=== PATIENT | male | born 1985 | race Caucasian/White ===

== ENCOUNTER 2018-05-24 18:13 | Emergency (ER) | payer OTHER ==
[~2018-05-24] VITALS: Ht 172.7 cm; Wt 100.0 kg
[2018-05-24 20:25] VITALS: BP 120/70
== END 2018-05-24 20:26 | disposition home or self-care (01) ==
LOC: EMS 18:16
DX: T24.101A Burn of first degree of unspecified site of right lower limb, except ankle and foot, initial encounter (principal); T24.102A Burn of first degree of unspecified site of left lower limb, except ankle and foot, initial encounter; F17.210 Nicotine dependence, cigarettes, uncomplicated; X58.XXXA Exposure to other specified factors, initial encounter; Y93.89 Activity, other specified; Y92.89 Other specified places as the place of occurrence of the external cause; Y99.8 Other external cause status
CPT/HCPCS: 16000; 99283; 99406

== ENCOUNTER 2019-04-13 11:53 | Emergency (ER) | payer OTHER ==
[~2019-04-13] VITALS: Ht 172.7 cm; Wt 86.4 kg
[2019-04-13] MEDS ORDERED: TETRACAINE HCL VISCOUS 0.5% 0.6 ML OPHTHALMIC SOLUTION OU ONE (13:00)
[2019-04-13] MEDS ORDERED: FLUORESCEIN SODIUM 1 MG STRIP ONE (13:00)
[2019-04-13] MEDS ORDERED: FLUORESCEIN SODIUM 1 MG STRIP OD ONE (13:00)
[2019-04-13] MEDS ORDERED: TETRACAINE HCL/PF 0.5% 4 ML OPHTHALMIC SOLUTION OU ONE (13:15)
[2019-04-13] MEDS ORDERED: PERTUSS(ACELL),DIPH,TET VAC/PF 0.5 ML VIAL IM ONE (13:45)
[2019-04-13 14:24] VITALS: BP 121/72
== END 2019-04-13 14:26 | disposition home or self-care (01) ==
LOC: EMS 11:53
DX: T15.01XA Foreign body in cornea, right eye, initial encounter (principal); F17.210 Nicotine dependence, cigarettes, uncomplicated; W22.8XXA Striking against or struck by other objects, initial encounter; Y93.89 Activity, other specified; Y92.89 Other specified places as the place of occurrence of the external cause; Y99.8 Other external cause status
CPT/HCPCS: 65222; 90471; 90715

== ENCOUNTER 2019-04-18 08:06 | Emergency (ER) | payer OTHER ==
[~2019-04-18] VITALS: Ht 177.8 cm; Wt 72.7 kg
[2019-04-18 08:42] LABS: AMPHET/METH SCREEN,URINE NEGATIVE (NEGATIVE); BARBITURATE SCREEN, URINE NEGATIVE (NEGATIVE); BENZODIAZEPINES SCREEN,URINE NEGATIVE (NEGATIVE); CANNABINOID SCREEN,URINE NEGATIVE (NEGATIVE); COCAINE SCREEN,URINE POSITIVE (NEGATIVE); METHADONE SCREEN, URINE NEGATIVE (NEGATIVE); OPIATE SCREEN,URINE NEGATIVE (NEGATIVE); PHENCYCLIDINE SCREEN,URINE NEGATIVE (NEGATIVE)
[2019-04-18 09:42] VITALS: BP 157/94
== END 2019-04-18 11:01 | disposition home or self-care (01) ==
LOC: EMS 08:07
DX: F14.10 Cocaine abuse, uncomplicated (principal); R00.2 Palpitations; F43.9 Reaction to severe stress, unspecified; F41.9 Anxiety disorder, unspecified; F17.210 Nicotine dependence, cigarettes, uncomplicated; Z79.899 Other long term (current) drug therapy
CPT/HCPCS: 99406

== ENCOUNTER 2019-09-15 09:09 | Emergency (ER) | payer SELFPAY ==
[~2019-09-15] VITALS: Ht 165.1 cm; Wt 90.0 kg
[2019-09-15] MEDS ORDERED: HYDROCODONE/ACETAMINOPHEN 5-325 MG TABLET PO ONE (10:15)
[2019-09-15 10:29] VITALS: BP 140/90
== END 2019-09-15 10:42 | disposition home or self-care (01) ==
LOC: EMS 09:10
DX: S05.02XA Injury of conjunctiva and corneal abrasion without foreign body, left eye, initial encounter (principal); F17.210 Nicotine dependence, cigarettes, uncomplicated; Z98.890 Other specified postprocedural states; X58.XXXA Exposure to other specified factors, initial encounter; Y93.89 Activity, other specified; Y92.89 Other specified places as the place of occurrence of the external cause; Y99.8 Other external cause status

== ENCOUNTER 2022-05-09 12:44 | Emergency (ER) | payer MEDICAID | END 2022-05-09 14:55 | disposition left against medical advice (07) | LOC: EMS 12:44 | DX: U07.1 COVID-19 (principal); Z53.21 Procedure and treatment not carried out due to patient leaving prior to being seen by health care provider ==

== ENCOUNTER 2024-04-12 20:06 | Emergency (ER) | payer BC, MEDICAID ==
[~2024-04-12] VITALS: Ht 172.7 cm; Wt 100.0 kg
[2024-04-12 20:10] VITALS: BP 122/72; PULSE 83; RESP 16; TEMP 99.6
[2024-04-12 20:18] LABS: COVID AG,FIA SOURCE NASAL SWAB
[2024-04-12 20:39] LABS: SARS-COV2 (COVID) ANTIGEN,FIA Negative (Negative)
[2024-04-12 20:46] LABS: INFLUENZA TYPE A NEGATIVE FOR TYPE A (NEGATIVE); INFLUENZA TYPE B NEGATIVE FOR TYPE B (NEGATIVE)
== END 2024-04-13 01:53 | disposition left against medical advice (07) ==
LOC: EMS 20:11
DX: R51.9 Headache, unspecified (principal); M79.10 Myalgia, unspecified site; R09.81 Nasal congestion; Z53.21 Procedure and treatment not carried out due to patient leaving prior to being seen by health care provider; Z20.822 Contact with and (suspected) exposure to COVID-19
CPT/HCPCS: 87804

== ENCOUNTER 2024-04-13 10:24 | Emergency (ER) | payer BC, MEDICAID ==
[~2024-04-13] VITALS: Ht 172.7 cm; Wt 100.0 kg
[2024-04-13 10:51] VITALS: TEMP 98.1
[2024-04-13 12:32] LABS: COVID AG,FIA SOURCE NASAL SWAB
[2024-04-13 13:01] LABS: INFLUENZA TYPE A NEGATIVE FOR TYPE A (NEGATIVE); INFLUENZA TYPE B NEGATIVE FOR TYPE B (NEGATIVE)
[2024-04-13 13:18] LABS: SARS-COV2 (COVID) ANTIGEN,FIA Positive (Negative)
[2024-04-13 14:04] VITALS: BP 122/70; PULSE 85; RESP 16
== END 2024-04-13 14:13 | disposition home or self-care (01) ==
LOC: EMS 10:28
DX: U07.1 COVID-19 (principal); F14.90 Cocaine use, unspecified, uncomplicated; Z90.49 Acquired absence of other specified parts of digestive tract; Z87.891 Personal history of nicotine dependence
CPT/HCPCS: 87804; 99283